=== PATIENT | female | born 1945 | race Caucasian/White ===

== ENCOUNTER 2021-04-21 06:40 | Emergency (ER) | payer MEDICARE ==
[2021-04-21 06:49] VITALS: RESP 16; TEMP 97.4
[2021-04-21] MEDS ORDERED: OXYMETAZOLINE 0.05% NASL SPRAY 1 SPRAY BOTTLE NASAL STA (07:28)
--- NOTE | 2021-04-21 07:42 | ED ---
General Adult HPI - General Chief complaint: ENT Stated complaint: Nose bleed Time Seen by Provider: 04/21/21 06:46 Source: patient, EMS Mode of arrival: EMS - History of Present Illness Initial comments: 75 year-old female patient presents for evaluation of nasal bleeding. States she blew her nose and started having with nosebleed around 3AM. States it has been bleeding since. Denies trauma or history of nose bleeds. Does take Eliquis. She is currently receiving rehabilitation at [facility] after being hospitalized at [facility] for TIA and OR. Patient denies any dizziness or weakness. Denies hematochezia, melena, or hematuria. Does report easy bruising since starting eliquis. - Related Data Allergies Allergy/AdvReac Type Severity Reaction Status Date / Time Sulfa (Sulfonamide Allergy Unknown Verified 04/21/21 06:46 Antibiotics) Review of Systems ROS Statement: Those systems with pertinent positive or pertinent negative responses have been documented in the HPI. ROS Other: All systems not noted in ROS Statement are negative. General Exam General appearance: alert, in no apparent distress, other (This is a well- developed, well-nourished adult female in no acute distress.) Eye exam: Present: normal appearance, PERRL, EOMI. Absent: scleral icterus, conjunctival injection, periorbital swelling ENT exam: Present: mucous membranes moist, other (There is bleeding noted from the right nostril, dried blood through the left nostril.) Respiratory exam: Present: normal lung sounds bilaterally. Absent: respiratory distress, wheezes, rales, rhonchi, stridor Cardiovascular Exam: Present: regular rate, normal rhythm, normal heart sounds. Absent: systolic murmur, diastolic murmur, rubs, gallop, clicks GI/Abdominal exam: Present: soft, normal bowel sounds. Absent: distended, tenderness, guarding, rebound, rigid Neurological exam: Present: alert, oriented X3, CN II-XII intact Psychiatric exam: Present: normal affect, normal mood Skin exam: Present: warm, dry, intact, normal color. Absent: rash Course Vital Signs 04/21/21 04/21/21 06:46 10:05 Temperature 97.4 F L Pulse Rate 80 82 Respiratory 16 16 Rate Blood Pressure 148/73 138/72 O2 Sat by Pulse 96 96 Oximetry Medical Decision Making - Medical Decision Making 75 year-old female patient presents for evaluation of epistaxis from bilateral nostrils. Bleeding started after blowing her nose this morning around 3AM. Physical exam revealed active bleeding from the right nostril. Blood clots to both. I did attempt to have patient blow her nose which was unsuccessful. Multiple attempts with nasal suction, irrigation, and afrin instillation finally removed blood clots. Inserted TXA soaked gauze to the bilateral nostrils, applied clamp for 20 minutes. Upon re-exam bleeding had subsided. We did ambulate in the department with no recurrence of bleeding. She was sent back to [facility] with nasal saline gel to instill three times a day. Given afrin to use as needed for recurrent bleeding. She is instructed to follow-up with ENT if necessary. Return parameters were discussed in detail. She verbalizes understanding and agrees with this plan. My attending is Dr. Maxwell. Disposition Clinical Impression: Epistaxis Disposition: HOME SELF-CARE Condition: Good Instructions (If sedation given, give patient instructions): Nosebleed (ED) Additional Instructions: Use afrin and nasal saline as directed. (Script included in paperwork). Follow up with ENT as needed. Return for any new, worsening, or concerning symptoms. Is patient prescribed a controlled substance at d/c from ED?: No Referrals: David Cole MD [STAFF PHYSICIAN] - 1-2 days Time of Disposition: 09:15
[2021-04-21] MEDS ORDERED: TRANEXAMIC ACID 1,000 MG in SODIUM CHLORIDE 0.9% 100 ML IRRIGATION ONE (07:45)
[2021-04-21] MEDS ORDERED: TRANEXAMIC ACID 1,000 MG/10 ML VIAL MISCELLANE STA (08:05)
[2021-04-21] MEDS ORDERED: SALINE NASAL GEL 14.1 GM TUBE NASAL STA (09:16)
[2021-04-21 10:20] VITALS: BP 138/72; PULSE 82
== END 2021-04-21 10:05 | disposition home or self-care (01) ==
LOC: EC 06:40
DX: R04.0 Epistaxis (principal); Z88.2 Allergy status to sulfonamides
CPT/HCPCS: 99283